=== PATIENT | male | born 1955 | race Caucasian/White ===

== ENCOUNTER → 2020-03-30 | Outpatient (CLI) | payer BC ==
[~2020-03-30] MED LIST: ACYC200C PO; ALPR.25T PO; ASP81TEC PO; ATOR80TA PO; ENAL2.5T PO; FISH1CAP15 PO; LOVA20TA2 PO; METH4TAB PO; METO-333 PO; METO25TA2 PO; OMG1KC PO; PNT40TEC PO; TICA90TA PO; VALS80TA31 PO
== END ==
LOC: CARD 09:39
PROVIDERS: ATTEND Internal Medicine Cardiovascular Disease
DX: I25.10 Atherosclerotic heart disease of native coronary artery without angina pectoris (principal); I50.9 Heart failure, unspecified; I34.0 Nonrheumatic mitral (valve) insufficiency
CPT/HCPCS: 93306

== ENCOUNTER → 2020-04-01 | Outpatient (CLI) | payer BC ==
[~2020-04-01] VITALS: Ht 167 cm; Wt 79.0 kg
[~2020-04-01] MED LIST changes: +CATHETER FLUSH 10 ML SYR IV PRN
[2020-04-01 09:04] VITALS: BP 144/78
[2020-04-01 09:07] VITALS: BP 147/74
[2020-04-01 09:10] VITALS: BP 160/72
[2020-04-01 09:12] VITALS: BP 160/72
[2020-04-01 09:18] VITALS: BP 149/92
--- NOTE | 2020-04-01 12:46 | Cardiology Stress Test Report ---
Stress Test Report Date of Procedure/Referring: Date of Procedure: Apr 01, 2020 PCP Idalmis Garcia MD Admitting Physician Caesar Moncada MD Indications: CHF Baseline Heart Rate: 62 Baseline Blood Pressure: Blood Pressure Systolic: 149 Blood Pressure Diastolic: 92 Vital Signs Date Time Temp Pulse Resp B/P (MAP) Pulse Ox O2 Delivery O2 Flow Rate FiO2 04/01/20 09:04 69 18 144/78 (100) 98 Room Air Baseline Vital Signs Vital Signs Date Time Temp Pulse Resp B/P (MAP) Pulse Ox O2 Delivery O2 Flow Rate FiO2 04/01/20 09:04 69 18 144/78 (100) 98 Room Air Baseline EKG: Baseline EKG: right bundle, sinus rhythm Summary: After explaining the procedure and details to the patient, he signed the con sent and was brought to the stress nuclear laboratory. Patient exercised on standard Lewis protocol, EKG, heart rate and blood pressure were monitored continuously, resting and stress doses of radio tracer were injected, imaging was acquired and reviewed in the short axis, horizontal long axis and vertical long axis views Patient was able to exercise for a total of 8 minutes on Lewis protocol, METs 9.7 Maximum heart rate 135 Maximum blood pressure 162/80 Stress EKG, Minimal nondiagnostic changes Recovery EKG, Return to baseline TID: 1.07 SSS: 15 SDS: 7 EF: 34 Conclusion: 1. Good exercise tolerance for total of 8 minutes on standard Lewis, 9.76, she maximum heart rate 135 which is 85 percent of maximum expected heart rate 2. Baseline right bundle branch block with nondiagnostic EKG changes with exercise returned to baseline during recovery 3. Fixed defect involving the basal to mid inferior, reversible ischemia involving the apical anterior wall and true apex 4. Normal left ventricular size, hypokinesia in the inferior wall and apex, 34 percent. IDALMIS GARCIA MD Apr 01, 2020 12:46
== END ==
LOC: CARD 08:00
PROVIDERS: ATTEND Internal Medicine Cardiovascular Disease
DX: I25.10 Atherosclerotic heart disease of native coronary artery without angina pectoris (principal); I50.9 Heart failure, unspecified
CPT/HCPCS: 78452; 93017; A9502

== ENCOUNTER 2020-04-15 11:00 | Day surgery (SDC) | payer BC ==
[~2020-04-15] VITALS: Ht 167 cm; Wt 78.0 kg
[2020-04-15] VITALS (12 sets, daily range): BP systolic 108–146; BP diastolic 77–93
[2020-04-15 09:26] LABS: HEMOGLOBIN 14.8 g/dL (13.3-17.7); MEAN PLATELET VOLUME 10.6 fL (9.0-12.2); WHITE BLOOD COUNT 8.7 10^3/uL (4.3-11.0)
[2020-04-15 09:33] LABS: BILIRUBIN,URINE NEGATIVE (NEGATIVE); CLARITY,URINE CLEAR; COLOR,URINE YELLOW; GLUCOSE, URINE (UA) NEGATIVE (NEGATIVE); KETONES,URINE NEGATIVE (NEGATIVE); LEUKOCYTE ESTERASE ,URINE NEGATIVE (NEGATIVE); NITRITE,URINE NEGATIVE (NEGATIVE); PROTEIN,URINE NEGATIVE (NEGATIVE)
--- NOTE | 2020-04-15 09:36 | Diagnostic Imaging Report ---
INDICATION: Coronary artery disease. FINDINGS: The lungs are clear. No failure, effusion or pneumothorax. IMPRESSION: No acute appearing abnormality. Dictated by: Dictated on workstation # [id number]
[2020-04-15 09:39] LABS: INR 0.9 (0.8-1.4); PROTHROMBIN TIME PATIENT 12.7 SEC (12.2-14.7)
[2020-04-15 09:40] LABS: BACTERIA,URINE NEGATIVE /HPF; SQUAMOUS EPITHELIAL CELL,UR 0-2 /HPF
[2020-04-15 09:46] LABS: ALANINE AMINOTRANSFERASE 13 U/L (0-55); ALBUMIN 4.5 GM/DL (3.2-4.5); ALKALINE PHOSPHATASE 67 U/L (40-136); BILIRUBIN,TOTAL 0.6 MG/DL (0.1-1.0); BUN/CREATININE RATIO 14; CALCIUM 9.5 MG/DL (8.5-10.1); CARBON DIOXIDE 23 MMOL/L (21-32); CHLORIDE 106 MMOL/L (98-107); CHOLESTEROL 162 MG/DL (< 200); CREATININE SERUM 1.06 MG/DL (0.60-1.30); GFR ESTIMATED > 60; GLUCOSE 93 MG/DL (70-105); HDL CHOLESTEROL 44 MG/DL (40-60); POTASSIUM 3.4 MMOL/L (3.6-5.0); SODIUM 140 MMOL/L (135-145); TOTAL PROTEIN 7.2 GM/DL (6.4-8.2); TRIGLYCERIDES 109 MG/DL (<150); VLDL CHOLESTEROL 22 MG/DL (5-40)
[~2020-04-15 11:00] MED LIST changes: -CATHETER FLUSH 10 ML SYR IV PRN; +HEParin (CATH LAB) 2,000 ML IV ONE; +LIDOCAINE 1% INJ 20 ML 20 ML VIAL ONE; +LOSA50TA63 PO; +NS IV 1000 ML 1,000 ML IV SCH; +NS IV 1000 ML 1,000 ML ONE
[2020-04-15] MEDS ORDERED: fentaNYL INJECTION 100 MCG/2 ML AMP ONE (11:09)
[2020-04-15] MEDS ORDERED: VERAPAMIL 5 MG/2 ML (CALAN) VIAL IV ONE (11:09)
[2020-04-15] MEDS ORDERED: HEParin 1000 UNIT/ML (10ML VIAL) FOR BOLUS ONE (11:09)
[2020-04-15] MEDS ORDERED: NITRO DRIP 25000 MCG/D5W 250 ML IV ONE (11:09)
[2020-04-15] MEDS ORDERED: MIDAZOLAM 5 MG/5 ML (VERSED) VIAL ONE (11:09)
--- NOTE | 2020-04-15 12:03 | Cardiac Procedure Note-CS/ASA ---
Pre-Procedure Note Pre-Op Procedure Note H&P Reviewed The H&P was reviewed, patient examined and no changes noted. Date H&P Reviewed: Apr 15, 2020 Time H&P Reviewed: 12:02 Conscious Sedation Pre-Proced Time 12:02 ASA Score 3 For ASA 3 and 4: Consider anesthesia and medical clearance. Also, for patients with a history of failed moderate sedation consider anesthesia. Airway Lungs Heart ASA score ASA 1: a normal healthy patient ASA 2: a patient with a mild systemic disease (mid diabetes, controlled hypertension, obesity x ASA 3: a patient with a severe systemic disease that limits activity (angina, COPD, prior Myocardial infarction) ASA 4: a patient with an incapacitating disease that is a constant threat to life (CHF, renal failure) ASA 5: a moribund patient not expected to survive 24 hrs. (ruptured aneurysm) ASA 6: a declared brain- patient whose organs are being harvested. For emergent operations, add the letter E after the classification Mallampati Classification Grade 3 Sedation Plan Analgesia, Amnesia, Plan communicated to team members, Discussed options with patient/fam, Discussed risks with patient/fam The patient is an appropriate candidate to undergo the planned procedure, sedation, and anesthesia. The patient immediately re-assessed prior to indication. IDALMIS PECK MD Apr 15, 2020 12:02
--- NOTE | 2020-04-15 12:08 | Cardiac Cath Report ---
Cardiac Cath Report Physician (s)/Winery Worker (s) Physician IDALMIS PECK MD Pre-Procedure Diagnosis Pre-Procedure Diagnosis: coronary artery disease Post-Procedure Note Procedure Start Date: Apr 15, 2020 Name of Procedure: Left heart catheterization Aortic arch angiogram Findings/Procedure Note PROCEDURE NOTE: 64 years old gentleman with history of coronary artery disease or myocardial infarction in 2011 with 2 stents to the circumflex artery, has been having chest pain, had an abnormal stress test scheduled for cardiac catheterization. After explaining the procedure to the patient, all pros and cons were explained, all questions were answered. The patient signed the consent and then he was placed on the cardiac catheterization laboratory. Groin was prepped SL fashion local anesthesia was used. Sheath placed in the right radial artery, multiple catheter were used [place], JL 3.5, Fernanda catheters to intubate the left system, angiogram was done, prolapsed to the left ventricular cavity and pressure was measured pulled to the aortic arch and angiogram to the right coronary artery was done then pulled back to the arch and arch angiogram was done At the end of the procedure the sheath was removed. Vascular band was used FINDINGS: Hemodynamics LV 107/13, end-diastolic pressure of 13 Aorta 102/58 mean of 83 ANATOMY: Left Main is free of obstructive disease Left Anterior Descending has severe stenosis/subtotal occlusion at the ostium/proximal portion. The diagonal artery is large artery with severe stenosis in the midportion at the bifurcation point Left Circumflex has 2 patent stents with no obstructive disease Right Coronory Artery is large dominant artery with severe stenosis distally LV Gram was not done, pressure was measured, ejection fraction is known to be decreased Aorta evaluation done with aortic arch angiogram showing normal aortic arch, no dissection or aneurysm, normal innominate artery, left subclavian and left carotid arteries CONCLUSION: 1. Severe multivessel disease including ostial/proximal LAD, mid diagonal artery that is a large artery at a bifurcation point and distal left right coronary artery that is a dominant artery 2. Patent stents in the proximal and mid circumflex artery 3. Normal left ventricular end-diastolic pressure, known to have reduced systolic function next line 4. Normal aortic arch and great vessels of the neck DISCUSSION AND RECOMMENDATION: Patient has multivessel disease with severe cardiomyopathy, consideration for referral for bypass surgery versus high risk intervention. Anesthesia Type: Conscious Sedation Estimated blood loss (mL): 25 ml Contrast Amount: 80 ml Total Radiation Dose: 459 mGy Post-Procedure Diagnosis Post-operative diagnosis: Coronary artery disease Congestive heart failure, chronic compensated left ventricular systolic dysfunction, ischemic cardiomyopathy Hypertension Hyperlipidemia IDALMIS PECK MD Apr 15, 2020 12:08
[2020-04-15] MEDS ORDERED: NS IV 1000 ML 1,000 ML IV SCH (12:15)
--- NOTE | 2020-04-15 12:28 | Discharge Inst-Post CATH ---
Discharge Inst-CATH/EP Problems Reviewed?: Yes Post Cardiac Cath/EP D/C Inst Follow Up/Plan Appointment with Dr. Garcia's office in [address] correa next April 22 <b>CARDIAC CATH/EP PROCEDURE DISCHARGE INSTRUCTIONS</b> ACTIVITY * Go Home directly and rest. * Limit activity of the leg (or wrist if it was used) for 7 days including aerobics, swimming, jogging, bicycling, etc. * Restrict stair-climbing for 7 days if possible, if not, climb up with your non-cath leg, then bring together on the same step. * Avoid lifting, pushing, pulling or excessive movement of the affected extremity for 7 days. * Customary sexual activity may be resumed after 2 days-use caution not to use a position that strains or causes pain to the affected extremity. * No driving for 24 hours. * NO SMOKING. * Avoid straining for bowel movements for 7 days. * Gentle walking on level ground is allowed. * Returning to work will depend on the type of procedure and the results. Your doctor will discuss this with you. CALL YOUR DOCTOR FOR ANY OF THE FOLLOWING: *If bleeding from the puncture site occurs- Apply gentle pressure to site with clean cloth and call your doctor or EMS. * If a knot or lump forms under the skin, increases in size, or causes pain. * If bruising appears to be worsening or moving further down your leg instead of disappearing. * Temperature above 101 F. CARE OF YOUR GROIN INCISION; * Bruising or purple discoloration of the skin near the puncture site is common. * You may shower only, no bathtub bathing for 5 days. Be careful to avoid slipping as your leg may feel stiff. * If a closure device was used on your femoral artery, please see the attached guide regarding care of the device and your leg. * Leave dressing on FOR 24 hours. CARE OF YOUR WRIST INCISION; * Bruising or purple discoloration of the skin near the puncture site is common. * You may shower. * DO NOT submerge wrist. * Leave dressing on FOR 24 hours. IDALMIS GARCIA MD Apr 15, 2020 12:28
== END 2020-04-15 18:05 ==
LOC: CATH 11:00
PROVIDERS: ATTEND Internal Medicine Cardiovascular Disease
DX: I25.10 Atherosclerotic heart disease of native coronary artery without angina pectoris (principal); I11.0 Hypertensive heart disease with heart failure; I50.22 Chronic systolic (congestive) heart failure; E78.2 Mixed hyperlipidemia; G47.33 Obstructive sleep apnea (adult) (pediatric); Z79.82 Long term (current) use of aspirin; Z79.899 Other long term (current) drug therapy; Z88.2 Allergy status to sulfonamides; Z88.8 Allergy status to other drugs, medicaments and biological substances
CPT/HCPCS: 36221; 71045; 80053; 80061; 81000; 85027; 85610; 85730; 87081; 93458; C1894; 36415

== ENCOUNTER → 2021-01-12 | Outpatient (CLI) | payer BC ==
[~2021-01-12] MED LIST changes: -HEParin (CATH LAB) 2,000 ML IV ONE; -LIDOCAINE 1% INJ 20 ML 20 ML VIAL ONE; -NS IV 1000 ML 1,000 ML IV SCH; -NS IV 1000 ML 1,000 ML ONE
== END ==
LOC: CARD 09:30
PROVIDERS: ATTEND Internal Medicine Cardiovascular Disease
DX: I11.9 Hypertensive heart disease without heart failure (principal); I08.1 Rheumatic disorders of both mitral and tricuspid valves
CPT/HCPCS: 93306

== ENCOUNTER → 2021-08-02 | Outpatient (CLI) | payer BC ==
[~2021-08-02] VITALS: Ht 167 cm; Wt 73.0 kg
[~2021-08-02] MED LIST changes: +CATHETER FLUSH 10 ML SYR IVP PRN
[2021-08-02 10:00] VITALS: BP 152/88
--- NOTE | 2021-08-02 16:34 | Cardiology Stress Test Report ---
Stress Test Report Date of Procedure/Referring: Date of Procedure: August 02, 2021 PCP King Garcia MD Admitting Physician Oscar Moncada MD Indications: HTN Baseline Heart Rate: 68 Baseline Blood Pressure: Blood Pressure Systolic: 152 Blood Pressure Diastolic: 88 Vital Signs Date Time Temp Pulse Resp B/P (MAP) Pulse Ox O2 Delivery O2 Flow Rate FiO2 08/02/21 10:00 63 16 152/88 (109) 98 Room Air Baseline Vital Signs Vital Signs Date Time Temp Pulse Resp B/P (MAP) Pulse Ox O2 Delivery O2 Flow Rate FiO2 08/02/21 10:00 63 16 152/88 (109) 98 Room Air Baseline EKG: Baseline EKG: RBBB Summary: After explaining the procedure and details to the patient, he signed the consent and was brought to the stress nuclear laboratory. Patient exercised on standard Lewis protocol, EKG, heart rate and blood pressure were monitored continuously, resting and stress doses of radio tracer were injected, imaging was acquired and reviewed in the short axis, horizontal long axis and vertical long axis views Patient was able to exercise for a total of 9 minutes on Lewis protocol, METs 7 0.5 Maximum heart rate 149 Maximum blood pressure 214/95 Stress EKG, Minimal nondiagnostic changes Recovery EKG, Return to baseline TID: 0.95 SSS: 18 SDS: 1 EF: 34 Conclusion: 1. Excellent exercise tolerance for a total of 9 minutes on standard Lewis protocol, 10.5 METS achieving 94% of maximum expected heart rate 2. Appropriate heart rate response to exercise with severe hypertensive respons e to exercise return to baseline during recovery 3. Baseline right bundle branch block with nondiagnostic EKG changes with exer cise and occasional PVCs noted during test. Return to baseline during recovery 4. Severe hypertensive response to exercise with peak blood pressure 214/95 return to baseline during recovery 5. Fixed defect involving the inferior wall inferolateral wall and lateral wall with total infarction with no reversibility 6. Prominent left ventricle with hypokinesia involving the inferior wall inferolateral wall and inferoseptum with ejection fraction 34% Copy Copies To 1: OSCAR MONCADA MD, BASHAR J MD August 02, 2021 16:33
== END ==
LOC: CARD 08:15
PROVIDERS: ATTEND Internal Medicine Cardiovascular Disease
DX: I10 Essential (primary) hypertension (principal)
CPT/HCPCS: 78452; 93017; A9502

== ENCOUNTER → 2021-09-15 | Outpatient (CLI) | payer BC ==
[~2021-09-15] VITALS: Ht 167.7 cm; Wt 68.2 kg
[~2021-09-15] MED LIST changes: -CATHETER FLUSH 10 ML SYR IVP PRN
== END | disposition home or self-care (01) ==
LOC: PREOP 05:32
PROVIDERS: ATTEND Surgery
DX: Z01.818 Encounter for other preprocedural examination (principal)

== ENCOUNTER 2021-09-22 08:57 | Day surgery (SDC) | payer BC ==
[2021-09-22] VITALS (13 sets, daily range): BP systolic 103–164; BP diastolic 55–95
[~2021-09-22] VITALS: Ht 167.7 cm; Wt 68.2 kg
[2021-09-22] MEDS ORDERED: ceFAZolin 2 GM IV Premixed 50 ML IV ONE (09:15)
[2021-09-22] MEDS: LACTATED RINGERS 1,000 ML IV PRN ×2 (09:58→11:00)
--- NOTE | 2021-09-22 10:01 | Progress Note-Pre Operative ---
Pre-Operative Progress Note H&P Reviewed The H&P was reviewed, patient examined and no changes noted. Time Seen by Provider: 09:58 Date H&P Reviewed: Sep 22, 2021 Time H&P Reviewed: 09:58 Pre-Operative Diagnosis: B/L inguinal hernia SHAWN JACKSON DO Sep 22, 2021 10:01
[2021-09-22] MEDS ORDERED: fentaNYL INJ 100 MCG/2 ML AMP ONE (10:25)
[2021-09-22] MEDS ORDERED: ROCURONIUM 50 MG/5 ML (ZEMURON) VIAL IV ONE (10:25)
[2021-09-22] MEDS ORDERED: MIDAZOLAM 2 MG/2 ML (VERSED) VIAL ONE (10:25)
[2021-09-22] MEDS ORDERED: ONDANSETRON 4 MG/2 ML (SDV) Z0FRAN ONE (10:25)
[2021-09-22] MEDS ORDERED: proPOfol 200 MG/20 ML (DIPRIVAN) VIAL IV ONE (10:25)
[2021-09-22] MEDS ORDERED: LIDOCAINE PF 2% 5 ML (XYLOCAINE) VIAL ONE (10:25)
[2021-09-22] MEDS ORDERED: SEVOFLURANE (ULTANE) 15 ML INHAL SOLN ONE (10:25)
[2021-09-22] MEDS ORDERED: GLYCOPYRROLATE 0.2 MG/ML (ROBINUL) 2 ML VIAL ONE (10:42)
[2021-09-22] MEDS ORDERED: ASPI-1238 PO (11:10)
[2021-09-22] MEDS ORDERED: LIDOCAINE/EPI 2% 1:100,00 (XYLOCAINE) 20 ML VIAL ONE (11:13)
[2021-09-22] MEDS ORDERED: ACHD5005 PO (12:48)
--- NOTE | 2021-09-22 12:49 | Discharge Inst-Surgical ---
Discharge Inst-Surgical Depart Medication/Instructions New, Converted or Re-Newed RX: Transmitted to Pharmacy Patient Instructions Follow up Appt: Make appointment for 1 week. [phone] Instructions: No lifting greater than 20 pounds. No strenuous activity. May shower in 24 hours, no tub bath or soaking. Use incentive spirometer at home as directed. No Smoking Skin/Wound Care: May remove bandages in am. You need to leave the Dermabond on incision it will fall off on it's own. Symptoms to Report: Appetite Changes, Extremity Discoloration, Numbness/Tingling, Swelling Increased, Bleeding Excessive, Eyesight Changes, Pain Increased, Urine Color Change, Constipation(Persistent), Fever over 101 degree F, Pain/Pressure in chest, Urinating Difficulty, Cough Up/Vomit Blood, Heart Beat Irreg/Pounding, Pain/Pressure in jaw, Cramps in feet or legs, Lightheadedness, Pain/Pressure in shoulder, Diarrhea(Persistent), Memory Changes Suddenly, Questions/Concerns, Weight gain consecutive days, Dizziness/Fainting, Nausea/Vomiting, Shortness of Breath, Weight gain over 2 pounds If questions or concerns contact your physician Or seek help at emergency department. Activity Activity as Tolerated: Yes Activity Instructions: Avoid Stress to Incision Driving Instructions: No Driving/Refer to Dr. Santana Discharge Diet: No Restrictions Diet After 24 Hours: Clear Liquid if Nauseous If Any Problems/Questions/Issu: Contact Your Physician, Go to Emergency Room Skin/Wound Care Infection Signs and Symptoms: Increased Redness, Foul Odor of Wound, Increased Drainage, Skin Itchy or Has a Rash, Increased Swelling, Temperature Above 101 F Wound Care Comment: heating pad to shoulder or neck tonight Bathing Instructions: Shower Stitches/Sheryl/Dermabond Dis: Dermabond Ice Pack: Ice On and Off Site SHAWN JACKSON DO Sep 22, 2021 12:49
--- NOTE | 2021-09-22 12:51 | Anesthesia-General Post-Op ---
General Patient Condition Mental Status/LOC: Same as Preop Cardiovascular: Satisfactory Nausea/Vomiting: Absent Respiratory: Satisfactory Pain: Controlled Complications: Absent Post Op Complications Complications None Follow Up Care/Instructions Patient Instructions None needed. Anesthesia/Patient Condition Patient Condition Patient is doing well, no complaints, stable vital signs, no apparent adverse anesthesia problems. No complications reported per nursing. JUAN JOSE TRIVEDI CRNA Sep 22, 2021 12:51
[2021-09-22] MEDS ORDERED: MEPERIDINE (DEMEROL) INJ 50 MG/ML IVP ONE (13:00)
[2021-09-22] MEDS ORDERED: ONDANSETRON 4 MG/2 ML (SDV) Z0FRAN IVP PRN (13:00)
[2021-09-22] MEDS ORDERED: morphine INJ 10 MG/ML 1ML (SYR OR VIAL) IVP ONE (13:00)
[2021-09-22] MEDS ORDERED: fentaNYL INJ 100 MCG/2 ML AMP IVP ONE (13:00)
[2021-09-22] MEDS ORDERED: PROMETHAZINE INJ 25 MG/ML (PHENERGAN) AMP IVP ONE (13:00)
[2021-09-22] MEDS ORDERED: HYDROcodone/APAP 5 MG/325 MG (LORTAB) TAB ONE (14:59)
[2021-09-22] MEDS ORDERED: HYDROcodone/APAP 5 MG/325 MG (LORTAB) TAB PO ONE (15:00)
--- NOTE | 2021-09-22 20:37 | Progress Note-Post Operative ---
Post-Operative Progess Note Surgeon (s)/Bench Worker Binding (s) Surgeon SHAWN JACKSON DO Bench Worker Binding: Mitchell Pre-Operative Diagnosis B/L inguinal hernia Post-Operative Diagnosis same plus b/l cord lipoma Right and left indirect hernia Procedure & Operative Findings Date of Procedure 09/22/21 Procedure Performed/Findings After informed consent was obtained, the patient was brought to the operating room and placed on the operating table in a supine position. He was sterilely prepped and draped in a normal fashion. Local lidocaine was used to infiltrate the skin next to the umbilicus. I made an incision with #11 blade, carried down to the skin into subcutaneous tissue and then deepened down the subcutaneous tissue with Bovie electrocautery down to the fascia. Fascia was incised with Bovie electrocautery and bluntly entered the abdomen, swept a finger around and placed Kii trocar port under direct visualization. Created pneumoperitoneum, able to visualize the hernia and took a picture of this and then placed two 8 mm ports about 10 cm on either side of the midline port using a local lidocaine, 11 blade for stab incision and then advanced the robotic port under direct visualization. Once this was in, I then placed the patient in Trendelenburg and then placed the working instruments, the fenestrated bipolar and the scissors. Looked on the left side and saw a small incarcerated inguinal hernia. I could see a large indirect hernia defect on the right side. Next, I came across the peritoneum approximately 8 cm away from the hernia defect, going across laterally starting lateral about 17cm and cutting toward the median umbilical ligament. I then carefully dissected the visceral peritoneum away and down and then in the midline, went through the parietal side and dissected down to the pubic tubercle, dissecting this down carefully pushing the peritoneum away, I was able to then visualize the pubic tubercle and Barry's ligament. I went 2 cm posterior and at this point, we then had a critical view of the dissection, able to dissect 2 cm across the midline to the right side, 2 cm posterior to the Barry's ligament, able to then parietalize the vas deferens and spermatic vessels right at the groove between Barry's and iliac vein and able to dissect, make sure there was no peritoneum between those two, able to see the indirect hernia space, took a picture of this, looked at the femoral space (no hernia seen). Then I carefully teased out the hernia sac and could visualize the indirect hernia space. Next I looked on the cord and cord structures. There was a large cord lipoma that I was able to reduce and cut off. This was then removed throught the port to get it out of the peritoneal space. I could clearly see the inguinal canal and the indirect space. Next I performed the exact same procedure on the left side. He had a small indirect inguinal hernia and a cord lipoma; which I also removed. I had carried the lateral dissection all the way out on the left and right side, with enough space to place one 12 x 17 Midwieght Bard 3DMax mesh on the left and one on the right. It laid in nicely, covered the hernia defect (on each side) and the rest of the area. It was above the peritoneum, sutured it at the pubic tubercle with a 3-0 Vicryl suture and tied this off. I also placed a 3-0 Vicryl suture out laterally on both sides. This appeared to lay in very nicely. I then brought down the pneumoperitoneum to about 8 mmHg and then started closing the peritoneum. Started laterally and used a 2-0 V-lock barbed suture to start a running stitch to close the peritoneum; it took two to close. This was closed nicely, took a picture of the closure at this point, then removed both needles had switched to a suture hire car driver from the scissors. The patient was then placed back supine and all robotic ports were removed, pneumoperitoneum was allowed to escape. Dr. Medrano assisted on this case helping to make incisions, close incisions, identify anatomy and pass and retrieve suture. Anesthesia Type GET Estimated Blood Loss Estimated blood loss (mL): scant Specimens/Packing Specimens Removed b/l cord lipoma SHAWN JACKSON DO Sep 22, 2021 20:37
== END 2021-09-22 16:30 | disposition home or self-care (01) ==
LOC: SDC 08:57
PROVIDERS: ATTEND Surgery
DX: K40.20 Bilateral inguinal hernia, without obstruction or gangrene, not specified as recurrent (principal); D17.6 Benign lipomatous neoplasm of spermatic cord
CPT/HCPCS: 49650; 55559; 87081; C1781 ×2; 88302

== ENCOUNTER → 2022-08-01 | Outpatient (CLI) | payer MEDICARE ==
[~2022-08-01] MED LIST changes: +ACHD5005 PO; +ASPI-1238 PO
== END ==
LOC: CARD 11:55
PROVIDERS: ATTEND Internal Medicine Cardiovascular Disease
DX: I11.0 Hypertensive heart disease with heart failure (principal); I50.20 Unspecified systolic (congestive) heart failure; I34.0 Nonrheumatic mitral (valve) insufficiency
CPT/HCPCS: 93306

== ENCOUNTER → 2022-09-07 | Outpatient (CLI) | payer MEDICARE ==
[~2022-09-07] MED LIST changes: +CATHETER FLUSH 10 ML SYR IVP PRN
[2022-09-07 13:18] VITALS: BP 128/60
--- NOTE | 2022-09-07 15:51 | Cardiology Stress Test Report ---
Stress Test Report Date of Procedure/Referring: Date of Procedure: Sep 07, 2022 PCP Oscar Moncada MD Admitting Physician Admitting Physician: Attending Physician: King Garcia MD Indications: CAD Baseline Heart Rate: 60 Baseline Blood Pressure: Blood Pressure Systolic: 128 Blood Pressure Diastolic: 60 Vital Signs Date Time Temp Pulse Resp B/P (MAP) Pulse Ox O2 Delivery O2 Flow Rate FiO2 09/07/22 13:18 60 128/60 (82) Baseline Vital Signs Vital Signs Date Time Temp Pulse Resp B/P (MAP) Pulse Ox O2 Delivery O2 Flow Rate FiO2 09/07/22 13:18 60 128/60 (82) Baseline EKG: Baseline EKG: NSR Summary: After explaining the procedure and details to the patient, he signed the co nsent and was brought to the stress nuclear laboratory. Patient exercised on standard Lewis protocol, EKG, heart rate and blood pressure were monitored continuously, resting and stress doses of radio tracer were injected, imaging was acquired and reviewed in the short axis, horizontal long axis and vertical long axis views Patient was able to exercise for a total of 10.30 minutes on Lewis protocol, METs 12.1 Maximum heart rate 136 Maximum blood pressure 202/72 Stress EKG, Minimal nondiagnostic changes Recovery EKG, Return to baseline TID: 0.89 SSS: 20 SDS: 0 EF: 38 Conclusion: Excellent exercise tolerance for 10 minutes and 30 seconds on standard Lewis protocol, 12.1 METS Appropriate heart rate response to exercise with occasional PVCs noted during exercise and in recovery, nondiagnostic EKG changes with exercise return to baseline during recovery Baseline hypertension with hypertensive response to exercise return to baseline during recovery Fixed defect involving the whole inferior wall and inferolateral wall Prominent left ventricle with hypokinesia to akinesia of the inferior wall and inferolateral wall, ejection fraction 38% Copy Copies To 1: OSCAR MONCADA MD, BASHAR J MD Sep 07, 2022 15:50
== END ==
LOC: CARD 11:53
PROVIDERS: ATTEND Internal Medicine Cardiovascular Disease
DX: I10 Essential (primary) hypertension (principal)
CPT/HCPCS: 78452; 93017; A9502